=== PATIENT | male | born 1995 | race Two or more races ===

== ENCOUNTER 2024-11-01 20:29 | Emergency (ER) | payer OTHER ==
[~2024-11-01] VITALS: Ht 165.1 cm; Wt 93.9 kg
[2024-11-01 21:09] VITALS: BP 150/90; O2SAT 100
[2024-11-01 21:56] LABS: BASO % 0.6 % (0.1-1.2); EOS # 0.12 (0.04-0.54); EOS % 1.5 % (0.7-7.0); LYMPH # 2.41 (1.18-3.74); LYMPH % 30.6 % (19.3-53.1); MEAN PLATELET VOLUME 9.80 fl (9.4-12.4); MONO # 0.66 (0.24-0.82); MONO % 8.4 % (4.7-12.5); NEUT # 4.62 (1.56-6.13); NEUT % 58.6 % (34.0-71.1); RED CELL DISTRIBUTION WIDTH 11.9 % (11.6-14.4)
[2024-11-01 22:17] LABS: ALT/SGPT 186.0 U/L (12-78); AST/SGOT 73.0 U/L (15-37); BILIRUBIN TOTAL 0.37 mg/dL (0.3-1.2); BUN CREA RATIO 16.0 (7.0-25.0); CREATININE SERUM 0.93 mg/dL (0.70-1.30); GFR 96.06; GLOBULINA 4.2 G/DL (2.4-3.5); GLUCOSE FASTING 110.0 mg/dL (65-100); OSMOLALITY SERUM 279.0 MOSM/KG (275-295)
[2024-11-01 22:29] LABS: COVID-19 AG NEGATIVE (NEGATIVE)
== END 2024-11-01 22:42 | disposition home or self-care (01) ==
LOC: ER 21:26
PROVIDERS: General Practice
DX: R00.2 Palpitations (principal); Z20.822 Contact with and (suspected) exposure to COVID-19; R53.81 Other malaise